=== PATIENT | female | born 1965 | race Caucasian/White ===

== ENCOUNTER → 2025-03-13 | Outpatient (CLI) | payer BC, SELFPAY ==
--- NOTE | 2025-03-13 11:30 | XR_ITS ---
Examination: Abdomen sonogram, complete Date and time of exam: March 13, 2025 1108 hours INDICATIONS: Diagnosis fatty liver. Technique: Multiple real-time grayscale transabdominal sonographic images of the abdomen have been obtained. Findings: Gallbladder polyps, the largest 10 mm Gallbladder wall 0.2 cm no gallstones Common bile duct 0.2 cm Pancreatic head 2.4 cm Aorta not enlarged Liver 13.9 cm fatty infiltration Normal hepatopedal portal venous flow Patent IVC Right kidney 11.5 cm cortex 1.8 cm 9 mm lower pole calculus Left kidney 12.2 cm cortex 1.6 cm Mild renal parenchymal scar formation Spleen 10.2 cm IMPRESSION: Multiple gallbladder polyps Fatty liver Nonobstructing 9 mm right renal calculus
== END | disposition home or self-care (01) ==
LOC: CDIM 10:54
PROVIDERS: PCP Internal Medicine; Referring Provider Internal Medicine; Visit Provider Internal Medicine
DX: K82.4 Cholesterolosis of gallbladder (principal); K76.0 Fatty (change of) liver, not elsewhere classified; N20.0 Calculus of kidney
CPT/HCPCS: 76700